=== PATIENT | female | born 1975 | race American Indian/Alaskan Native ===

== ENCOUNTER 2017-09-01 21:21 | Emergency (ER) | payer OTHER ==
[2017-09-01] MEDS ORDERED: ZOFRAN IV ONE (21:49)
[2017-09-01] MEDS ORDERED: NACL 0.9% 1000 ML 1,000 ML IV ONE (21:49)
[2017-09-01] MEDS ORDERED: SUBLIMAZE IV ONE (21:49)
--- NOTE | 2017-09-01 21:50 | Emergency Department Report ---
ED General Adult HPI - General Chief complaint: Chest Pain Stated complaint: NAUSEA/VOMITING Time Seen by Provider: 09/01/17 21:40 Source: patient, RN notes reviewed Mode of arrival: Stretcher Limitations: No Limitations - History of Present Illness Initial comments: This is a 42-year-old female who was previously unknown to this provider. She has a past surgical history of appendectomy, does not have a primary care doctor , and denies chronic medical conditions. She presents to the ER with a complaint of central bilateral chest wall pain, sensation that her allergies are "acting up", and abdominal pain. Her symptoms have been going on for the past few days. They're getting worse. Her pain increases with palpation and decreases with rest. The chest pain does not radiate to the arms or neck. There is some radiation to the back. There is no lower abdominal pain. There is right flank pain. There are no urinary symptoms. The patient denies DVT, pulmonary embolus risk factors. Patient denies diaphoresis. Admits to intermittent shortness of breath. Admits to cough. -: Gradual Location: chest, back, abdomen Radiation: back Severity scale (0 -10): 8 Quality: aching Consistency: intermittent Improves with: rest Worsens with: movement Associated Symptoms: chest pain, cough, malaise, shortness of breath. denies: confusion, diaphoresis, fever/chills, headaches, loss of appetite, rash, seizure , syncope, weakness - Related Data Previous Rx's Medication Instructions Recorded Last Taken Type Acetaminophen [Tylenol Arthritis] 650 mg PO Q6HR PRN #30 tablet.er 09/02/17 Unknown Rx Cetirizine HCl [ZyrTEC] 10 mg PO QDAY PRN #30 capsule 09/02/17 Unknown Rx Fluticasone [Flonase] 1 spray NS BID #1 bottle 09/02/17 Unknown Rx Ibuprofen [Motrin] 600 mg PO Q8H PRN #30 tablet 09/02/17 Unknown Rx Ondansetron [Zofran Odt] 4 mg PO Q8HR PRN #20 tab.rapdis 09/02/17 Unknown Rx Allergies Allergy/AdvReac Type Severity Reaction Status Date / Time Sulfa (Sulfonamide Allergy Angioedema Verified 09/01/17 21:58 Antibiotics) ED Review of Systems ROS: Stated complaint: NAUSEA/VOMITING Other details as noted in HPI Comment: All other systems reviewed and negative ED Past Medical Hx - Past Medical History Previous Medical History?: Yes Hx Seizures: Yes Additional medical history: seasonal allergies - Surgical History Past Surgical History?: Yes Additional Surgical History: right kidney removal-1998 - Social History Smoking Status: Never Smoker Substance Use Type: Alcohol - Medications Home Medications: Home Medications Medication Instructions Recorded Confirmed Last Taken Type Acetaminophen [Tylenol Arthritis] 650 mg PO Q6HR PRN #30 tablet.er 09/02/17 Unknown Rx Cetirizine HCl [ZyrTEC] 10 mg PO QDAY PRN #30 capsule 09/02/17 Unknown Rx Fluticasone [Flonase] 1 spray NS BID #1 bottle 09/02/17 Unknown Rx Ibuprofen [Motrin] 600 mg PO Q8H PRN #30 tablet 09/02/17 Unknown Rx Ondansetron [Zofran Odt] 4 mg PO Q8HR PRN #20 tab.rapdis 09/02/17 Unknown Rx ED Physical Exam - General Limitations: No Limitations General appearance: alert, in no apparent distress - Head Head exam: Present: atraumatic, normocephalic - Eye Eye exam: Present: normal appearance, EOMI. Absent: nystagmus - ENT ENT exam: Present: normal exam, normal orophraynx, mucous membranes moist, normal external ear exam - Neck Neck exam: Present: normal inspection, full ROM - Respiratory Respiratory exam: Present: normal lung sounds bilaterally, chest wall tenderness. Absent: respiratory distress - Cardiovascular Cardiovascular Exam: Present: regular rate, normal rhythm, normal heart sounds. Absent: systolic murmur, diastolic murmur, rubs, gallop - GI/Abdominal GI/Abdominal exam: Present: soft, tenderness, normal bowel sounds, other (there is right flank tenderness.). Absent: distended, guarding, rebound, rigid, pulsatile mass - Extremities Exam Extremities exam: Present: normal inspection, full ROM, normal capillary refill. Absent: tenderness, pedal edema, joint swelling, calf tenderness - Back Exam Back exam: Present: normal inspection, full ROM. Absent: tenderness, CVA tenderness (R), paraspinal tenderness, vertebral tenderness - Neurological Exam Neurological exam: Present: alert, oriented X3, CN II-XII intact, normal gait, other (Extraocular movements intact. Tongue midline. No facial droop. Facial sensation intact to light touch in the V1, V2, V3 distribution bilaterally. 5 and 5 strength in 4 extremities.. Sensation is intact to light touch in 4 extremities.). Absent: motor sensory deficit - Psychiatric Psychiatric exam: Present: normal affect, normal mood - Skin Skin exam: Present: warm, dry, intact, normal color. Absent: rash ED Course Vital Signs 09/01/17 09/01/17 09/01/17 21:32 21:38 21:44 Temperature 98.4 F Pulse Rate 80 82 Respiratory 12 12 Rate Blood Pressure 107/80 Blood Pressure [Right] O2 Sat by Pulse 96 Oximetry 09/01/17 09/01/17 22:30 23:10 Temperature Pulse Rate 69 61 Respiratory 16 16 Rate Blood Pressure Blood Pressure 112/56 115/79 [Right] O2 Sat by Pulse 98 98 Oximetry - Reevaluation(s) Reevaluation #1: 09/02/17 01:21 Differential diagnosis, including but not limited to: Pneumonia, acute coronary syndrome, renal colic, pulmonary embolus, seasonal allergies, costochondritis Assessment and plan: 42-year-old female, no pulmonary embolus or DVT risk factors, low risk by well's criteria, perc negative, troponin negative 2, EKG unchanged 2, low risk by DEBO score, low risk by heart score, with complaint of allergies, chest pain, and abdominal pain. Physical exam is negative for right flank tenderness. D-dimer was negative, laboratory studies otherwise unremarkable, patient was medicated appropriately, and a CT scan abdomen and pelvis is pending. If CT scan were to be negative, patient at low risk for major adverse cardiac event and is suitable to follow up with outpatient primary care or cardiology to complete an acute coronary syndrome risk stratification. Reevaluation #2: 09/02/17 01:30 09/02/17 01:55 Reevaluation #3: 09/02/17 01:55 Patient feels improved. Belly is soft on repeat exam. CT scan does not demonstrate any surgical disease or pathology. Incidental nephrectomy is noted. The patient did not inform me when I asked her about prior abdominal surgeries that she had had a nephrectomy. When I ask her about this she told me that she "forgot." Patient was educated as to the importance of telling her providers about prior abdominal surgeries, including her nephrectomy. Incidental large 6 cm ovarian cyst noted on CAT scan, her belly is soft on her repeat examination. She can follow up with outpatient [facility] for this. ED Medical Decision Making - Lab Data Result diagrams: 09/01/17 21:54 09/01/17 21:54 Vital Signs 09/01/17 09/01/17 09/01/17 21:32 21:38 21:44 Temperature 98.4 F Pulse Rate 80 82 Respiratory 12 12 Rate Blood Pressure 107/80 Blood Pressure [Right] O2 Sat by Pulse 96 Oximetry 09/01/17 09/01/17 22:30 23:10 Temperature Pulse Rate 69 61 Respiratory 16 16 Rate Blood Pressure Blood Pressure 112/56 115/79 [Right] O2 Sat by Pulse 98 98 Oximetry Lab Results 09/01/17 09/01/17 09/01/17 Range/Units 21:54 21:54 21:54 WBC 5.3 (4.5-11.0) K/mm3 RBC 4.14 (3.65-5.03) M/mm3 Hgb 11.7 (10.1-14.3) gm/dl Hct 36.4 (30.3-42.9) % MCV 88 (79-97) fl MCH 28 (28-32) pg MCHC 32 (30-34) % RDW 13.9 (13.2-15.2) % Plt Count 205 (140-440) K/mm3 Lymph % (Auto) 28.2 (13.4-35.0) % [place] % (Auto) 9.3 H (0.0-7.3) % Eos % (Auto) 5.5 H (0.0-4.3) % Baso % (Auto) 0.5 (0.0-1.8) % Lymph # 1.5 (1.2-5.4) K/mm3 [place] # 0.5 (0.0-0.8) K/mm3 Eos # 0.3 (0.0-0.4) K/mm3 Baso # 0.0 (0.0-0.1) K/mm3 Seg Neutrophils % 56.5 (40.0-70.0) % Seg Neutrophils # 3.0 (1.8-7.7) K/mm3 PT 12.2 (12.2-14.9) Sec. INR 0.87 (0.87-1.13) D-Dimer (0-234) ng/mlDDU Sodium 139 (137-145) mmol/L Potassium 3.9 (3.6-5.0) mmol/L Chloride 104.6 (98-107) mmol/L Carbon Dioxide 19 L (22-30) mmol/L Anion Gap 19 mmol/L BUN 13 (7-17) mg/dL Creatinine 0.7 (0.7-1.2) mg/dL Estimated GFR > 60 ml/min BUN/Creatinine Ratio 19 % Glucose 90 (65-100) mg/dL Calcium 8.4 (8.4-10.2) mg/dL Total Bilirubin 0.40 (0.1-1.2) mg/dL AST 23 (5-40) units/L ALT 17 (7-56) units/L Alkaline Phosphatase 70 (35-129) units/L Troponin T < 0.010 (0.00-0.029) ng/mL Total Protein 6.6 (6.3-8.2) g/dL Albumin 3.8 L (3.9-5) g/dL Albumin/Globulin Ratio 1.4 % Lipase 18 (13-60) units/L HCG, Qual (Negative) Urine Color (Yellow) Urine Turbidity (Clear) Urine pH (5.0-7.0) Ur Specific [place] (1.003-1.030) Urine Protein (Negative) mg/dL Urine Glucose (UA) (Negative) mg/dL Urine Ketones (Negative) mg/dL Urine Blood (Negative) Urine Nitrite (Negative) Urine Bilirubin (Negative) Urine Urobilinogen (<2.0) mg/dL Ur Leukocyte Esterase (Negative) Urine WBC (Auto) (0.0-6.0) /HPF Urine RBC (Auto) (0.0-6.0) /HPF U Epithel Cells (Auto) (0-13.0) /HPF Urine Mucus /HPF 09/01/17 09/01/17 09/01/17 Range/Units 21:54 22:23 22:56 WBC (4.5-11.0) K/mm3 RBC (3.65-5.03) M/mm3 Hgb (10.1-14.3) gm/dl Hct (30.3-42.9) % MCV (79-97) fl MCH (28-32) pg MCHC (30-34) % RDW (13.2-15.2) % Plt Count (140-440) K/mm3 Lymph % (Auto) (13.4-35.0) % [place] % (Auto) (0.0-7.3) % Eos % (Auto) (0.0-4.3) % Baso % (Auto) (0.0-1.8) % Lymph # (1.2-5.4) K/mm3 [place] # (0.0-0.8) K/mm3 Eos # (0.0-0.4) K/mm3 Baso # (0.0-0.1) K/mm3 Seg Neutrophils % (40.0-70.0) % Seg Neutrophils # (1.8-7.7) K/mm3 PT (12.2-14.9) Sec. INR (0.87-1.13) D-Dimer (0-234) ng/mlDDU Sodium (137-145) mmol/L Potassium (3.6-5.0) mmol/L Chloride (98-107) mmol/L Carbon Dioxide (22-30) mmol/L Anion Gap mmol/L BUN (7-17) mg/dL Creatinine (0.7-1.2) mg/dL Estimated GFR ml/min BUN/Creatinine Ratio % Glucose (65-100) mg/dL Calcium (8.4-10.2) mg/dL Total Bilirubin (0.1-1.2) mg/dL AST (5-40) units/L ALT (7-56) units/L Alkaline Phosphatase (35-129) units/L Troponin T < 0.010 (0.00-0.029) ng/mL Total Protein (6.3-8.2) g/dL Albumin (3.9-5) g/dL Albumin/Globulin Ratio % Lipase (13-60) units/L HCG, Qual Negative (Negative) Urine Color Yellow (Yellow) Urine Turbidity Clear (Clear) Urine pH 5.0 (5.0-7.0) Ur Specific [place] 1.035 H (1.003-1.030) Urine Protein 30 mg/dl (Negative) mg/dL Urine Glucose (UA) Neg (Negative) mg/dL Urine Ketones Neg (Negative) mg/dL Urine Blood Sm (Negative) Urine Nitrite Neg (Negative) Urine Bilirubin Neg (Negative) Urine Urobilinogen < 2.0 (<2.0) mg/dL Ur Leukocyte Esterase Tr (Negative) Urine WBC (Auto) 7.0 H (0.0-6.0) /HPF Urine RBC (Auto) 4.0 (0.0-6.0) /HPF U Epithel Cells (Auto) 9.0 (0-13.0) /HPF Urine Mucus 1+ /HPF 09/01/17 Range/Units 22:56 WBC (4.5-11.0) K/mm3 RBC (3.65-5.03) M/mm3 Hgb (10.1-14.3) gm/dl Hct (30.3-42.9) % MCV (79-97) fl MCH (28-32) pg MCHC (30-34) % RDW (13.2-15.2) % Plt Count (140-440) K/mm3 Lymph % (Auto) (13.4-35.0) % [place] % (Auto) (0.0-7.3) % Eos % (Auto) (0.0-4.3) % Baso % (Auto) (0.0-1.8) % Lymph # (1.2-5.4) K/mm3 [place] # (0.0-0.8) K/mm3 Eos # (0.0-0.4) K/mm3 Baso # (0.0-0.1) K/mm3 Seg Neutrophils % (40.0-70.0) % Seg Neutrophils # (1.8-7.7) K/mm3 PT (12.2-14.9) Sec. INR (0.87-1.13) D-Dimer < 135 (0-234) ng/mlDDU Sodium (137-145) mmol/L Potassium (3.6-5.0) mmol/L Chloride (98-107) mmol/L Carbon Dioxide (22-30) mmol/L Anion Gap mmol/L BUN (7-17) mg/dL Creatinine (0.7-1.2) mg/dL Estimated GFR ml/min BUN/Creatinine Ratio % Glucose (65-100) mg/dL Calcium (8.4-10.2) mg/dL Total Bilirubin (0.1-1.2) mg/dL AST (5-40) units/L ALT (7-56) units/L Alkaline Phosphatase (35-129) units/L Troponin T (0.00-0.029) ng/mL Total Protein (6.3-8.2) g/dL Albumin (3.9-5) g/dL Albumin/Globulin Ratio % Lipase (13-60) units/L HCG, Qual (Negative) Urine Color (Yellow) Urine Turbidity (Clear) Urine pH (5.0-7.0) Ur Specific [place] (1.003-1.030) Urine Protein (Negative) mg/dL Urine Glucose (UA) (Negative) mg/dL Urine Ketones (Negative) mg/dL Urine Blood (Negative) Urine Nitrite (Negative) Urine Bilirubin (Negative) Urine Urobilinogen (<2.0) mg/dL Ur Leukocyte Esterase (Negative) Urine WBC (Auto) (0.0-6.0) /HPF Urine RBC (Auto) (0.0-6.0) /HPF U Epithel Cells (Auto) (0-13.0) /HPF Urine Mucus /HPF - EKG Data -: EKG Interpreted by Id - EKG Data 09/02/17 01:21 EKG #1 demonstrates normal sinus, 80 bpm, normal intervals, normal axis, not morphologically consistent with a STEMI. EKG #2 appears to be unchanged. - Radiology Data Radiology results: report reviewed, image reviewed Print Report Referring Physician: RAY EDGAR Patient Name: ELIZABETH JUNG Date of : 1975 Sex: Female Report Date: 2017-09-01 Report Status: Finalized Findings [facility] [address] [place] [address] XRay Report Signed Patient: ELIZABETH JUNG MR#: [id number] : 1975 Acct:[id number] Age/Sex: 42 / F ADM Date: 09/01/17 Loc: ED Attending Dr: Ordering Physician: RAY EDGAR MD Date of Service: 09/01/17 Procedure(s): XR chest routine 2V Accession Number(s): [id number] cc: RAY EDGAR MD Fluoro Time In Minutes: FINAL REPORT PROCEDURE: XR CHEST ROUTINE 2V TECHNIQUE: PA and lateral chest radiographs were obtained. CPT 94040 HISTORY: Chest Pain COMPARISON: No prior studies are available for comparison. FINDINGS: Heart: Normal. Mediastinum/Vessels: Normal. Lungs/Pleural space: Irregular calcifications are noted in the right hilar and infrahilar regions. Bilateral lungs and pleural spaces are clear.. Bony thorax: No acute osseous abnormality. Other: IMPRESSION: Irregular calcifications in the right hilar and infrahilar regions most likely represent calcified lymph nodes secondary to old granulomatous disease. No acute pulmonary process.. Transcribed By: [facility] Dictated By: BERTO BROWN Electronically Authenticated By: BERTO BROWN Signed Date/Time: 09/01/17 0162 Print Report Referring Physician: RAY EDGAR Patient Name: ELIZABETH JUNG Date of : 1975 Sex: Female Report Date: 2017-09-02 Report Status: [place] [address] Cat Scan Report Signed Patient: ELIZABETH JUNG MR#: [id number] : 1975 Acct:[id number] Age/Sex: 42 / F ADM Date: 09/01/17 Loc: ED Attending Dr: Ordering Physician: RAY EDGAR MD Date of Service: 09/02/17 Procedure(s): CT abdomen pelvis w con Accession Number(s): [id number] cc: RAY EDGAR MD FINAL REPORT EXAM: CT ABDOMEN PELVIS W CON HISTORY: right flank pain TECHNIQUE: Routine axial imaging was obtained of the abdomen and pelvis following the intravenous injection of 100 cc Omnipaque 350. Sagittal coronal reconstructions were reviewed. Delayed imaging was obtained through the left kidney left ureter and bladder. FINDINGS: The lung bases are clear. Pleural fluid is not seen The right kidney has been removed. The left kidney and adrenal glands appear normal. The liver, gallbladder, pancreas, and spleen all appear normal. The bowel loops are normal in caliber and course. The appendix has been removed. The vasculatures enhance normally. There is no evidence of free fluid or adenopathy. In the pelvis there is a 6 cm in diameter cyst right of midline behind the uterus most likely ovarian origin. Free fluid is not seen. There is a T-shaped IUD in the expected position in the uterus. The bladder appears normal. The skeletal structures do not show any acute changes. IMPRESSION: Previous right nephrectomy and appendectomy. No acute process in the abdomen and pelvis. 6 cm cyst right of midline in the pelvis most likely ovarian in origin. No evidence of free fluid. Transcribed By: RB Dictated By: LYNDA BREEN MD Electronically Authenticated By: LYNDA BREEN MD Signed Date/Time: 09/02/17139 DD/ 9 DD/ 55 TD/TT: 09/01/172255 Critical care attestation.: If time is entered above; I have spent that time in minutes in the direct care of this critically ill patient, excluding procedure time. ED Disposition Clinical Impression: Chest wall pain, Abdominal pain Disposition: TO HOME OR SELFCARE Is pt being admited?: No Does the pt Need Aspirin: No Condition: Good Instructions: Chest Pain (ED) Additional Instructions: Take the pain medication, nausea medication as needed/directed. Follow-up with a primary care doctor or angle bender within the next 3-5 days for your chest pain. Take Flonase [id number] as needed for allergies. Return to the ER right away with new pain, worsened pain, migration of pain, fevers, chills, lethargy, irritability, projectile vomiting, change in mental status, confusion , inability to tolerate with feeds. Follow up with a field attendant as recommended for ovarian cyst. Local gynecology groups including from [facility], [facility], [facility] Local cardiology practices include [facility] Prescriptions: Acetaminophen [Tylenol Arthritis] 650 mg PO Q6HR PRN #30 tablet.er PRN Reason: Pain Cetirizine HCl [ZyrTEC] 10 mg PO QDAY PRN #30 capsule PRN Reason: Allergy Symptoms Fluticasone [Flonase] 1 spray NS BID #1 bottle Ibuprofen [Motrin] 600 mg PO Q8H PRN #30 tablet PRN Reason: Pain Ondansetron [Zofran Odt] 4 mg PO Q8HR PRN #20 tab.rapdis PRN Reason: Nausea Referrals: [facility] [Provider Group] - 3-5 Days [facility] [Provider Group] - 3-5 Days [facility] [Provider Group] - 3-5 Days [facility], [Primary Care Provider] - 3-5 Days [facility] [Provider Group] - 3-5 Days [facility] [Provider Group] - 3-5 Days [facility] [Provider Group] - 3-5 Days Forms: Work/School Release Form(ED)
[2017-09-01] MEDS ORDERED: REGLAN IV ONE (22:04)
[2017-09-01 22:08] LABS: Basophils % (Auto) 0.5 % (0.0-1.8); Eosinophils # (Auto) 0.3 K/mm3 (0.0-0.4); Eosinophils % (Auto) 5.5 % (0.0-4.3); Hematocrit 36.4 % (30.3-42.9); Hemoglobin 11.7 gm/dl (10.1-14.3); Lymphocytes # (Auto) 1.5 K/mm3 (1.2-5.4); Lymphocytes % (Auto) 28.2 % (13.4-35.0); Mean Corpuscular HGB Conc 32 % (30-34); Mean Corpuscular Hemoglobin 28 pg (28-32); Mean Corpuscular Volume 88 fl (79-97); Monocytes # (Auto) 0.5 K/mm3 (0.0-0.8); Monocytes % (Auto) 9.3 % (0.0-7.3); Platelet Count 205 K/mm3 (140-440); Red Blood Count 4.14 M/mm3 (3.65-5.03); Red Cell Distribution Width 13.9 % (13.2-15.2)
[2017-09-01 22:24] LABS: Alanine Aminotransferase 17 units/L (7-56); Albumin 3.8 g/dL (3.9-5); BUN/Creatinine Ratio 19; Blood Urea Nitrogen 13 mg/dL (7-17); Calcium 8.4 mg/dL (8.4-10.2); Hemolysis Index 18; Lipase 18 units/L (13-60)
[2017-09-01 22:27] LABS: INR 0.87 (0.87-1.13)
--- NOTE | 2017-09-01 23:02 | XRay Report ---
FINAL REPORT PROCEDURE: XR CHEST ROUTINE 2V TECHNIQUE: PA and lateral chest radiographs were obtained. CPT 78361 HISTORY: Chest Pain COMPARISON: No prior studies are available for comparison. FINDINGS: Heart: Normal. Mediastinum/Vessels: Normal. Lungs/Pleural space: Irregular calcifications are noted in the right hilar and infrahilar regions. Bilateral lungs and pleural spaces are clear.. Bony thorax: No acute osseous abnormality. Other: IMPRESSION: Irregular calcifications in the right hilar and infrahilar regions most likely represent calcified lymph nodes secondary to old granulomatous disease. No acute pulmonary process..
[2017-09-01 23:14] LABS: Bilirubin,Urine NEG (Negative); Blood,Urine SM (Negative); Color,Urine Yellow (Yellow); Mucus,Urine 1+ /HPF; Urobilinogen,Urine < 2.0 mg/dL (<2.0)
[2017-09-01] MEDS ORDERED: TORADOL IV ONE (23:16)
--- NOTE | 2017-09-02 01:45 | Cat Scan Report ---
FINAL REPORT EXAM: CT ABDOMEN PELVIS W CON HISTORY: right flank pain TECHNIQUE: Routine axial imaging was obtained of the abdomen and pelvis following the intravenous injection of 100 cc Omnipaque 350. Sagittal coronal reconstructions were reviewed. Delayed imaging was obtained through the left kidney left ureter and bladder. FINDINGS: The lung bases are clear. Pleural fluid is not seen The right kidney has been removed. The left kidney and adrenal glands appear normal. The liver, gallbladder, pancreas, and spleen all appear normal. The bowel loops are normal in caliber and course. The appendix has been removed. The vasculatures enhance normally. There is no evidence of free fluid or adenopathy. In the pelvis there is a 6 cm in diameter cyst right of midline behind the uterus most likely ovarian origin. Free fluid is not seen. There is a T-shaped IUD in the expected position in the uterus. The bladder appears normal. The skeletal structures do not show any acute changes. IMPRESSION: Previous right nephrectomy and appendectomy. No acute process in the abdomen and pelvis. 6 cm cyst right of midline in the pelvis most likely ovarian in origin. No evidence of free fluid.
[2017-09-02 02:18] VITALS: BP 101/50
== END 2017-09-02 02:19 | disposition home or self-care (01) ==
LOC: ED 21:21
DX: R07.89 Other chest pain (principal); R10.9 Unspecified abdominal pain
CPT/HCPCS: 36415; 71046; 74177; 80053; 81001; 83690; 84484; 84703; 85025; 85379; 85610; 93005; 93010; 96361; 96374; 96375; 99285; J1885; J2765; J3010; J7030; Q9967

== ENCOUNTER 2020-04-07 08:15 | Emergency (ER) | payer OTHER ==
[2020-04-07 08:23] VITALS: BP 129/90
[2020-04-07 09:13] LABS: HCG Qualitative,Urine Negative (Negative)
[2020-04-07 09:22] LABS: Bacteria,Urine 1+ /HPF (Negative); Bilirubin,Urine NEG (Negative); Blood,Urine NEG (Negative); Color,Urine Yellow (Yellow); Protein,Urine <15 mg/dL mg/dL (Negative); Urobilinogen,Urine < 2.0 mg/dL (<2.0)
[2020-04-07] MEDS ORDERED: MORPHINE 4 MG/1 ML INJ IV ONE (09:25)
[2020-04-07] MEDS ORDERED: LACTATED RINGERS 1,000 ML IV ONE (09:25)
[2020-04-07] MEDS ORDERED: ONDANSETRON 4 MG/2 ML INJ IV ONE (09:25)
[2020-04-07 09:27] LABS: Basophils % (Auto) 0.4 % (0.0-1.8); Eosinophils # (Auto) 0.2 K/mm3 (0.0-0.4); Eosinophils % (Auto) 3.2 % (0.0-4.3); Hematocrit 38.4 % (30.3-42.9); Hemoglobin 12.5 gm/dl (10.1-14.3); Lymphocytes # (Auto) 1.1 K/mm3 (1.2-5.4); Lymphocytes % (Auto) 22.4 % (13.4-35.0); Mean Corpuscular HGB Conc 33 % (30-34); Mean Corpuscular Volume 88 fl (79-97); Monocytes # (Auto) 0.3 K/mm3 (0.0-0.8); Monocytes % (Auto) 6.4 % (0.0-7.3); Platelet Count 194 K/mm3 (140-440); Red Blood Count 4.36 M/mm3 (3.65-5.03); Red Cell Distribution Width 15.3 % (13.2-15.2)
[2020-04-07 09:32] LABS: Alanine Aminotransferase 15 units/L (7-56); BUN/Creatinine Ratio 11; Blood Urea Nitrogen 9 mg/dL (7-17); Calcium 9.2 mg/dL (8.4-10.2); Hemolysis Index 6
--- NOTE | 2020-04-07 09:34 | Emergency Department Report ---
ED General Adult HPI - General Chief complaint: Abdominal Pain Stated complaint: LOWER/BACK PAIN/URINATION PAIN Time Seen by Provider: 04/07/20 09:24 Source: patient Mode of arrival: Ambulatory Limitations: No Limitations - History of Present Illness Initial comments: 45-year-old female with history of right nephrectomy presenting with chief complaint of right greater than left flank pain radiating to the lower abdomen, onset 5 or 6 days ago, constant, severe associated with nausea and vomiting. She also reports that it hurts when she urinates and that she is going more frequently. She denies any fevers, chills, diarrhea. She states that initially she had attributed the pain to doing a lot of heavy lifting at work but then when the vomiting began she became more concerned. Onset was gradual, no alleviating or exacerbating factors. Severity scale (0 -10): 10 - Related Data Previous Rx's Medication Instructions Recorded Last Taken Type Acetaminophen [Tylenol Arthritis] 650 mg PO Q6HR PRN #30 tablet.er 09/02/17 Unknown Rx Cetirizine HCl [ZyrTEC] 10 mg PO QDAY PRN #30 capsule 09/02/17 Unknown Rx Fluticasone [Flonase] 1 spray NS BID #1 bottle 09/02/17 Unknown Rx Ibuprofen [Motrin] 600 mg PO Q8H PRN #30 tablet 09/02/17 Unknown Rx Ondansetron [Zofran Odt] 4 mg PO Q8HR PRN #20 tab.rapdis 09/02/17 Unknown Rx Acetaminophen/Codeine [Tylenol 1 tab PO Q6H PRN #12 tab 04/07/20 Unknown Rx /Codeine # 3 tab] Cyclobenzaprine [Flexeril] 10 mg PO TID PRN #15 tablet 04/07/20 Unknown Rx Allergies Allergy/AdvReac Type Severity Reaction Status Date / Time morphine Allergy Anaphylaxis Verified 04/07/20 10:10 Sulfa (Sulfonamide Allergy Angioedema Verified 09/01/17 21:58 Antibiotics) ED Review of Systems ROS: Stated complaint: LOWER/BACK PAIN/URINATION PAIN Other details as noted in HPI Comment: All other systems reviewed and negative Gastrointestinal: as per HPI Genitourinary: as per HPI ED Past Medical Hx - Past Medical History Previous Medical History?: Yes Hx Seizures: Yes Additional medical history: Pt. has on kidney, on right - Surgical History Past Surgical History?: Yes Additional Surgical History: Nephrectomy 1998 - Social History Smoking Status: Never Smoker Substance Use Type: None - Medications Home Medications: Home Medications Medication Instructions Recorded Confirmed Last Taken Type Acetaminophen [Tylenol Arthritis] 650 mg PO Q6HR PRN #30 tablet.er 09/02/17 Unknown Rx Cetirizine HCl [ZyrTEC] 10 mg PO QDAY PRN #30 capsule 09/02/17 Unknown Rx Fluticasone [Flonase] 1 spray NS BID #1 bottle 09/02/17 Unknown Rx Ibuprofen [Motrin] 600 mg PO Q8H PRN #30 tablet 09/02/17 Unknown Rx Ondansetron [Zofran Odt] 4 mg PO Q8HR PRN #20 tab.rapdis 09/02/17 Unknown Rx Acetaminophen/Codeine [Tylenol 1 tab PO Q6H PRN #12 tab 04/07/20 Unknown Rx /Codeine # 3 tab] Cyclobenzaprine [Flexeril] 10 mg PO TID PRN #15 tablet 04/07/20 Unknown Rx ED Physical Exam - General Limitations: No Limitations General appearance: alert, in no apparent distress - Head Head exam: Present: atraumatic, normocephalic - Eye Eye exam: Present: normal appearance - ENT ENT exam: Present: mucous membranes moist - Neck Neck exam: Present: normal inspection - Respiratory Respiratory exam: Present: normal lung sounds bilaterally. Absent: respiratory distress - Cardiovascular Cardiovascular Exam: Present: regular rate, normal rhythm. Absent: systolic m urmur, diastolic murmur, rubs, gallop - GI/Abdominal GI/Abdominal exam: Present: soft, tenderness (Diffusely), normal bowel sounds. Absent: distended, guarding, rebound - Extremities Exam Extremities exam: Present: normal inspection - Back Exam Back exam: Present: normal inspection - Neurological Exam Neurological exam: Present: alert, oriented X3 - Psychiatric Psychiatric exam: Present: normal affect, normal mood - Skin Skin exam: Present: warm, dry, intact, normal color. Absent: rash ED Course Vital Signs 04/07/20 08:22 Temperature 98.2 F Pulse Rate 79 Respiratory 18 Rate Blood Pressure 129/90 [Right] O2 Sat by Pulse 100 Oximetry ED Medical Decision Making - Lab Data Result diagrams: 04/07/20 08:43 12/14/20 08:43 - Radiology Data Radiology results: report reviewed CT abdomen pelvis shows 6 cm right ovarian cyst Pelvic ultrasound shows 6 cm right ovarian cyst, 2.5 cm left ovarian cyst, blood flow could not be obtained to either ovary however no free fluid or edema to richardson ggest ovarian torsion and clinically I do not feel the patient has ovarian torsion - Medical Decision Making 45-year-old female with history of right nephrectomy presented bilateral flank pain, right greater than left along with dysuria and vomiting over the past 5 to 6 days. On my exam she is tearful, heart sounds are normal, lungs clear, abdomen diffusely tender, diffuse back pain but no focal CVA tenderness noted. We will check labs and CT, give IV fluids morphine and Zofran and then reassess. Urinalysis without infection, labs are stable. CT shows a large right ovarian cyst though this seems to be unchanged from prior imaging. An ultrasound was obtained for better characterization and shows bilateral ovarian cyst right greater than left. Doppler flow could not be demonstrated to either ovary however clinically I do not feel that the patient has ovarian torsion especially bilateral. Recommended outpatient [facility] follow-up. - Differential Diagnosis Kidney stone, UTI, musculoskeletal pain Critical care attestation.: If time is entered above; I have spent that time in minutes in the direct care of this critically ill patient, excluding procedure time. ED Disposition Clinical Impression: Ovarian cyst Qualifiers: Laterality: bilateral Qualified Code(s): N83.201 - Unspecified ovarian cyst, right side; N83.202 - Unspecified ovarian cyst, left side Disposition: - TO HOME OR SELFCARE Is pt being admited?: No Condition: Good Instructions: Abdominal Pain (ED), Ovarian Cyst, Ovarian Cyst, [id number] Prescriptions: Cyclobenzaprine [Flexeril] 10 mg PO TID PRN #15 tablet PRN Reason: Muscle Spasm Acetaminophen/Codeine [Tylenol /Codeine # 3 tab] 1 tab PO Q6H PRN #12 tab PRN Reason: Pain , Severe (7-10) Referrals: PRIMARY CARE, [Primary Care Provider] - 3-5 Days MAYRA LAW MD [Staff Physician] - 3-5 Days Time of Disposition: 11:23
[2020-04-07] MEDS ORDERED: KETOROLAC 30 MG/1 ML INJ ONE (10:05)
--- NOTE | 2020-04-07 10:05 | Cat Scan Report ---
CT ABDOMEN AND PELVIS WITHOUT CONTRAST HISTORY: flank/abd pain COMPARISON: 09/02/2017 TECHNIQUE: Axial CT images were obtained through the abdomen and pelvis without IV contrast. Sagittal and coronal reformatted images. All CT scans at this location are performed using CT dose reduction for ALARA by means of automated exposure control. FINDINGS: CT ABDOMEN: Lung Bases: Clear. Liver: No significant abnormality. Biliary: No significant abnormality. Spleen: No significant abnormality. Unenlarged. Pancreas: No significant abnormality. Adrenals: No significant abnormality. Kidneys: Right nephrectomy changes are evident. The left kidney and collecting system are unremarkabl e. Lymphatics: No lymphadenopathy. Vasculature: No significant abnormality. Bowel/Peritoneum: No significant abnormality. No free air. No free fluid. Appendectomy changes are richardson spected. CT PELVIS: : A large right adnexal cyst appears essentially unchanged measuring 6.4 x 7.0 cm. The uterus and l eft adnexa are unremarkable. An IUD has been removed since the previous exam. Normal bladder. Osseous Structures: Mild thoracolumbar spondylosis. Additional Findings: None IMPRESSION: 6.4 x 7.0 cm right ovarian cyst. Stable right nephrectomy changes. No acute inflammatory process is appreciated. Signer Name: Young Stephenson Jr, MD Signed: 04/07/2020 10:00 AM Workstation Name: [id number]
[2020-04-07] MEDS ORDERED: KETOROLAC 30 MG/1 ML INJ IV ONE (10:06)
[2020-04-07] MEDS ORDERED: diphenhydrAMINE 50 MG/ML VIAL ONE (10:15)
[2020-04-07] MEDS ORDERED: diphenhydrAMINE 50 MG/ML VIAL IV ONE (10:16)
--- NOTE | 2020-04-07 11:14 | Ultrasound Report ---
US pelvic complete, US transvaginal INDICATION / CLINICAL INFORMATION: large cyst, r/o torsion. COMPARISON: CT abdomen pelvis done earlier today FINDINGS: Right ovary contains a large but well defined and homogeneous cyst, measuring 6 cm. Left ovary contai ns a much smaller but again simple appearing 2.5 cm cyst. No free fluid. Color Doppler imaging was unable to demonstrate vascular flow in either ovary. Uterus appears unremarkable. Endometrial stripe measures 8 mm in thickness. IMPRESSION: 1. Bilateral ovarian cysts, much larger on the right, as described. 2. Vascular flow could not be confirmed in either ovary however, with a lack of edema or free fluid, bilateral ovarian torsion is considered unlikely. Signer Name: Terrance Dixon MD Signed: 04/07/2020 11:10 AM Workstation Name: [id number]
[2020-04-07] MEDS ORDERED: oxyCODONE /ACETAMINOPHEN 5-325MG TAB PO ONE (11:24)
== END 2020-04-07 11:44 | disposition home or self-care (01) ==
LOC: ED 08:15
DX: N83.209 Unspecified ovarian cyst, unspecified side (principal); R56.9 Unspecified convulsions; Z98.890 Other specified postprocedural states; Z79.1 Long term (current) use of non-steroidal anti-inflammatories (NSAID); Z79.899 Other long term (current) drug therapy; Z88.2 Allergy status to sulfonamides; Z88.8 Allergy status to other drugs, medicaments and biological substances
CPT/HCPCS: 36415; 74176; 76830; 76856; 80053; 81001; 81025; 85025; 96361; 96374; 96375; 99284; J1200; J1885; J2405; J7120; J2270

== ENCOUNTER 2020-08-01 12:12 | Emergency (ER) | payer OTHER ==
[2020-08-01 12:28] VITALS: BP 119/88
--- NOTE | 2020-08-01 12:57 | Event Note ---
ED Screening Note Date of service: 08/01/20 Time: 12:48 ED Screening Note: 45-year-old -[place] female presents to the emergency room complaining of shortness of breath, chest pain, headache with nausea and vomiting and decreased appetite x1 week. Patient states her symptoms are not improving. She denies any loss of taste or smell denies any Covid exposure. She has not tested for Covid. Last menstrual period was in May 18, 2020. She was recently told that she has a mass on her right ovary. Denies any fever no chills reports of body aches and weakness. This initial assessment/diagnostic orders/clinical plan/treatment(s) is/are subject to change based on patients health status, clinical progression and re- assessment by fellow clinical providers in the ED. Further treatment and workup at subsequent clinical providers discretion. Patient/guardian urged not to elope from the ED as their condition may be serious if not clinically assessed and managed. Initial orders include:
[2020-08-01 13:07] LABS: Hematocrit 41.2 % (30.3-42.9); Hemoglobin 13.7 gm/dl (10.1-14.3); Mean Corpuscular HGB Conc 33 % (30-34); Mean Corpuscular Volume 85 fl (79-97); Platelet Count 335 K/mm3 (140-440); Red Blood Count 4.87 M/mm3 (3.65-5.03); Red Cell Distribution Width 14.2 % (13.2-15.2)
[2020-08-01 13:17] LABS: INR 0.97 (0.87-1.13); Partial Thromboplastin Time 30.3 Sec. (24.2-36.6)
[2020-08-01 13:23] LABS: Alanine Aminotransferase 39 units/L (7-56); Albumin 3.5 g/dL (3.9-5); BUN/Creatinine Ratio 13; Blood Urea Nitrogen 10 mg/dL (7-17); Calcium 9.2 mg/dL (8.4-10.2); Hemolysis Index 4
[2020-08-01 13:51] LABS: Total Cells Counted 100
[2020-08-01 13:52] LABS: Platelet Estimate Consistent w Auto; RBC Morphology Normal
--- NOTE | 2020-08-01 14:11 | XRay Report ---
CHEST 2 VIEWS INDICATION / CLINICAL INFORMATION: Chest pain shortness of breath. COMPARISON: None FINDINGS: SUPPORT DEVICES: None. HEART / MEDIASTINUM: No significant abnormality. LUNGS / PLEURA: Hazy opacification of the bilateral lower lungs with blunting of the left costophreni c angle suggesting a small pleural effusion. No pneumothorax. ADDITIONAL FINDINGS: No significant additional findings. IMPRESSION: 1. Bibasilar airspace disease with small left pleural effusion. Findings could represent edema, aspir ation, or pneumonia. Recommend clinical correlation and further evaluation/follow-up as warranted. Signer Name: Amrit Duarte MD Signed: 08/01/2020 2:07 PM Workstation Name: [id number]
[2020-08-01] MEDS ORDERED: IBUPROFEN 600 MG TAB PO ONE (14:47)
--- NOTE | 2020-08-01 14:47 | Emergency Department Report ---
ED General Adult HPI - General Chief complaint: Chest Pain Stated complaint: CHEST PAIN/SOB/LIGHT HEADED/FEVER/CHILLS Source: patient Mode of arrival: Ambulatory Limitations: No Limitations - History of Present Illness Initial comments: 45-year-old -Beninese female presents to the emergency room complaining of shortness of breath, chest pain, headache with nausea and vomiting and decreased appetite x1 week. Patient states her symptoms are not improving. She denies any loss of taste or smell denies any Covid exposure. She has not tested for Covid. Last menstrual period was in May 18, 2020. She was recently told that she has a mass on her right ovary. Denies any fever no chills reports of body aches and weakness. Onset/Timin -: week(s) Location: chest Radiation: non-radiation Severity scale (0 -10): 10 Quality: aching, sharp Consistency: constant Improves with: none Associated Symptoms: chest pain, headaches, loss of appetite, nausea/vomiting, shortness of breath. denies: diaphoresis Treatments Prior to Arrival: none - Related Data Previous Rx's Medication Instructions Recorded Last Taken Type Acetaminophen [Tylenol Arthritis] 650 mg PO Q6HR PRN #30 tablet.er 09/02/17 Unknown Rx Cetirizine HCl [ZyrTEC] 10 mg PO QDAY PRN #30 capsule 09/02/17 Unknown Rx Fluticasone [Flonase] 1 spray NS BID #1 bottle 09/02/17 Unknown Rx Ondansetron [Zofran Odt] 4 mg PO Q8HR PRN #20 tab.rapdis 09/02/17 Unknown Rx Acetaminophen/Codeine [Tylenol 1 tab PO Q6H PRN #12 tab 04/07/20 Unknown Rx /Codeine # 3 tab] Cyclobenzaprine [Flexeril] 10 mg PO TID PRN #15 tablet 04/07/20 Unknown Rx Albuterol Sulfate [Proair 90 mcg IH QID PRN #1 aer.pow.ba 08/01/20 Unknown Rx Respiclick] Azithromycin [Zithromax Z-HOLLI] 250 mg PO DAILY #6 tab 08/01/20 Unknown Rx Ibuprofen [Motrin 600 MG tab] 600 mg PO Q8H PRN #30 tablet 08/01/20 Unknown Rx Promethazine [Phenergan] 25 mg PO Q6HR PRN #12 tab 08/01/20 Unknown Rx predniSONE [Deltasone] 20 mg PO QDAY 5 Days #5 tab 08/01/20 Unknown Rx traMADoL [Ultram 50 MG tab] 50 mg PO Q6HR PRN #12 tablet 08/01/20 Unknown Rx Allergies Allergy/AdvReac Type Severity Reaction Status Date / Time morphine Allergy Anaphylaxis Verified 04/07/20 10:10 Sulfa (Sulfonamide Allergy Angioedema Verified 09/01/17 21:58 Antibiotics) ketorolac [From Toradol] AdvReac Itching Verified 04/07/20 11:27 ED Review of Systems ROS: Stated complaint: CHEST PAIN/SOB/LIGHT HEADED/FEVER/CHILLS Other details as noted in HPI Comment: All other systems reviewed and negative ED Past Medical Hx - Past Medical History Previous Medical History?: Yes Hx Seizures: Yes Additional medical history: Pt. has on kidney, on right - Surgical History Past Surgical History?: Yes Additional Surgical History: Nephrectomy 1998 - Social History Smoking Status: Never Smoker Substance Use Type: None - Medications Home Medications: Home Medications Medication Instructions Recorded Confirmed Last Taken Type Acetaminophen [Tylenol Arthritis] 650 mg PO Q6HR PRN #30 tablet.er 09/02/17 Unknown Rx Cetirizine HCl [ZyrTEC] 10 mg PO QDAY PRN #30 capsule 09/02/17 Unknown Rx Fluticasone [Flonase] 1 spray NS BID #1 bottle 09/02/17 Unknown Rx Ondansetron [Zofran Odt] 4 mg PO Q8HR PRN #20 tab.rapdis 09/02/17 Unknown Rx Acetaminophen/Codeine [Tylenol 1 tab PO Q6H PRN #12 tab 04/07/20 Unknown Rx /Codeine # 3 tab] Cyclobenzaprine [Flexeril] 10 mg PO TID PRN #15 tablet 04/07/20 Unknown Rx Albuterol Sulfate [Proair 90 mcg IH QID PRN #1 aer.pow.ba 08/01/20 Unknown Rx Respiclick] Azithromycin [Zithromax Z-HOLLI] 250 mg PO DAILY #6 tab 08/01/20 Unknown Rx Ibuprofen [Motrin 600 MG tab] 600 mg PO Q8H PRN #30 tablet 08/01/20 Unknown Rx Promethazine [Phenergan] 25 mg PO Q6HR PRN #12 tab 08/01/20 Unknown Rx predniSONE [Deltasone] 20 mg PO QDAY 5 Days #5 tab 08/01/20 Unknown Rx traMADoL [Ultram 50 MG tab] 50 mg PO Q6HR PRN #12 tablet 08/01/20 Unknown Rx ED Physical Exam - General Limitations: No Limitations General appearance: alert, in no apparent distress - Head Head exam: Present: atraumatic, normocephalic - Eye Eye exam: Present: normal appearance - ENT ENT exam: Present: mucous membranes moist - Neck Neck exam: Present: normal inspection - Respiratory Respiratory exam: Present: normal lung sounds bilaterally. Absent: respiratory distress - Cardiovascular Cardiovascular Exam: Present: regular rate, normal rhythm. Absent: systolic murmur, diastolic murmur, rubs, gallop - GI/Abdominal GI/Abdominal exam: Present: soft, normal bowel sounds - Extremities Exam Extremities exam: Present: normal inspection - Back Exam Back exam: Present: normal inspection - Neurological Exam Neurological exam: Present: alert, oriented X3 - Psychiatric Psychiatric exam: Present: normal affect, normal mood - Skin Skin exam: Present: warm, dry, intact, normal color. Absent: rash ED Course Vital Signs 08/01/20 12:26 Temperature 97.7 F Pulse Rate 92 H Respiratory 20 Rate Blood Pressure 119/88 [Right] O2 Sat by Pulse 96 Oximetry ED Medical Decision Making - Lab Data Result diagrams: 08/01/20 12:53 08/01/20 12:53 - Medical Decision Making 45-year-old -Ben[place] female presents to the emergency room complaining of shortness of breath, chest pain, headache with nausea and vomiting and decreased appetite x1 week. Patient states her symptoms are not improving. She denies any loss of taste or smell denies any Covid exposure. She has not tested for Covid. Last menstrual period was in May 18, 2020. She was recently told that she has a mass on her right ovary. Denies any fever no chills reports of body aches and weakness. Patient x-ray shows bilateral airspace disease consistent with pneumonia of viral or bacterial etiology. Patient will be placed on a azithromycin. Highly suspicious of Covid. Patient discharged with albuterol prednisone Phenergan tramadol and ibuprofen. Discussed with patient she needs to get Covid testing place her on quarantine discussed with her that all her family members that lives with her need to be tested as well. Patient verbalized understanding. Critical care attestation.: If time is entered above; I have spent that time in minutes in the direct care of this critically ill patient, excluding procedure time. ED Disposition Clinical Impression: Pneumonia due to 2019 novel coronavirus Disposition: DC-01 TO HOME OR SELFCARE Is pt being admited?: No Does the pt Need Aspirin: No Condition: Stable Instructions: Bacterial Pneumonia (ED), COVID-19 Frequently Asked Questions, COVID-19: How to Protect Yourself and Others - [facility], Prevent the Spread of COVID- 19 if You Are Sick - [facility] Additional Instructions: Your symptoms and your chest x-ray shows consistent with Covid. I recommend you to complete your antibiotics take your antinausea medication use your inhaler and take your pain medication as needed. It is important that you get a Covid test as well as your family that lives with you in enclosed contact to be tested as well. I am asking that she stay home for another 10 days for quarantine. I am asking that she increase your fluid intake advance your diet as tolerated. Please contact your primary care provider informed him that you have been sick and seen in the emergency room and make an appointment for follow-up after your quarantine. Please return back to the emergency room if there is any worsening symptoms worsening shortness of breath not able to walk from your bedroom to your bathroom without getting short of breath worsening dizziness worsening ch est pain not able to eat or drink. Your symptoms appear most consistent with a nonspecific viral syndrome. However, given this current pandemic, COVID-19 is in the differential of possibilities. Despite your previous negative COVID-19 test, I do recommend repeat outpatient Covid 19 testing. In the meantime, isolate/quarantine yourself and stay away from anyone who is elderly, immunocompromised or chronically ill. You can use ibuprofen every 6-8 hours and Tylenol every 4-8 hours, using the dosing on the back of the bottle, as needed for any fever or body aches. Return to the emergency department with any worsening of your symptoms, development of chest pain or shortness of breath, or with any acute distress. Prescriptions: predniSONE [Deltasone] 20 mg PO QDAY 5 Days #5 tab Ibuprofen [Motrin 600 MG tab] 600 mg PO Q8H PRN #30 tablet PRN Reason: Pain Promethazine [Phenergan] 25 mg PO Q6HR PRN #12 tab PRN Reason: Nausea Albuterol Sulfate [Proair Respiclick] 90 mcg IH QID PRN #1 aer.pow.ba PRN Reason: Shortness Of Breath traMADoL [Ultram 50 MG tab] 50 mg PO Q6HR PRN #12 tablet PRN Reason: Pain Azithromycin [Zithromax Z-HOLLI] 250 mg PO DAILY #6 tab Referrals: MARC ENCISO MD [Staff Physician] - 3-5 Days Forms: Work/School Release Form(ED)
[2020-08-01] MEDS ORDERED: PROMETHAZINE 25 MG TAB PO ONE (14:48)
== END 2020-08-01 16:24 | disposition home or self-care (01) ==
LOC: ED 12:12
DX: U07.1 COVID-19 (principal); J12.82 Pneumonia due to coronavirus disease 2019; R56.9 Unspecified convulsions; Z98.890 Other specified postprocedural states; Z79.1 Long term (current) use of non-steroidal anti-inflammatories (NSAID); Z79.2 Long term (current) use of antibiotics; Z79.899 Other long term (current) drug therapy; Z88.2 Allergy status to sulfonamides; Z88.8 Allergy status to other drugs, medicaments and biological substances
CPT/HCPCS: 36415; 71046; 80053; 84702; 85007; 85025; 85379; 85610; 85730; 93005; 99283; Q0169